=== PATIENT | female | born 1950 | race Caucasian/White ===

== ENCOUNTER 2021-10-14 06:01 | Inpatient (IN) | payer OTHER, MEDICAID ==
[~2021-10-14] VITALS: Ht 152.4 cm; Wt 74.4 kg
[2021-10-14 06:32] LABS: BASOPHILS % 0.8 % (0.0-2.0); EOSINOPHILS % 2.4 % (0.0-5.0); HEMATOCRIT. 40.2 % (36.0-48.0); HEMOGLOBIN. 13.2 g/dL (12.0-16.0); LYMPHOCYTES % 35.6 % (20.0-50.0); MEAN CORPUSCULAR VOLUME 85.1 fL (81.0-99.0); MEAN PLATELET VOLUME 9.5 fl (7.4-10.4); MONOCYTES % 9.6 % (2.0-8.0); NEUTROPHILS % 51.6 % (40.0-76.0); PLATELET 206 x1000/uL (130-400); RED BLOOD CELL COUNT 4.72 mill/uL (4.2-5.4); RED CELL DISTRIBUTION WIDTH 13.8 % (11.6-14.6)
[2021-10-14 06:40] LABS: CHLORIDE 109 mEq/L (98-107)
[2021-10-14 10:05] VITALS: BP 141/41
[2021-10-14] MEDS ORDERED: METO25TA6 MT (10:35)
[2021-10-14] MEDS ORDERED: APIX5TAB MT (10:35)
[2021-10-14 10:51] VITALS: BP 141/41
[2021-10-14] MEDS ORDERED: AMLODIPINE 2.5MG TABLET PO ONE (11:00)
[2021-10-14] MEDS: AMLODIPINE 2.5MG TABLET PO SCH ×2 (11:06→20:42)
[2021-10-14] MEDS: APIXABAN 5 MG TABLET PO SCH ×2 (11:06→18:13)
[2021-10-14 12:30] VITALS: BP 136/51
[2021-10-14 16:20] VITALS: BP 137/51
[2021-10-14] MEDS ORDERED: ACETAMINOPHEN 325MG TABLET PO PRN (16:45)
[2021-10-14] MEDS ORDERED: ONDANSETRON HCL 4MG/2ML INJ IV PRN (16:45)
[2021-10-14 19:32] LABS: CLARITY URINE CLEAR (CLEAR); COLOR URINE YELLOW (YELLOW); KETONES URINE NEGATIVE (NEGATIVE); LEUKOCYTE ESTERASE URINE NEGATIVE (NEGATIVE); NITRITE URINE NEGATIVE (NEGATIVE); OCCULT BLOOD URINE NEGATIVE (NEGATIVE); PH URINE 6.5 (4.5-8.0); PROTEIN URINE NEGATIVE (NEGATIVE); SPECIFIC GRAVITY URINE 1.012 (1.005-1.030); UROBILINOGEN URINE 0.2 E.U./dL (0.2-1.0)
[2021-10-14 20:00] VITALS: BP 129/43
[2021-10-15] VITALS: BP 151/51
[2021-10-15 03:50] VITALS: BP 144/43
[2021-10-15 05:29] LABS: BASOPHILS % 0.5 % (0.0-2.0); EOSINOPHILS % 2.1 % (0.0-5.0); HEMOGLOBIN. 12.6 g/dL (12.0-16.0); LYMPHOCYTES % 31.9 % (20.0-50.0); MEAN CORPUSCULAR HEMOGLOBIN 27.4 pg (28.0-32.0); MEAN CORPUSCULAR VOLUME 84.5 fL (81.0-99.0); MEAN PLATELET VOLUME 10.3 fl (7.4-10.4); MONOCYTES % 11.6 % (2.0-8.0); NEUTROPHILS % 53.9 % (40.0-76.0); PLATELET 210 x1000/uL (130-400); RED BLOOD CELL COUNT 4.61 mill/uL (4.2-5.4); RED CELL DISTRIBUTION WIDTH 13.9 % (11.6-14.6)
[2021-10-15 05:55] LABS: CHLORIDE 109 mEq/L (98-107)
[2021-10-15 08:03] VITALS: BP 144/49
[2021-10-15] MEDS: APIXABAN 5 MG TABLET PO SCH (08:51)
[2021-10-15] MEDS: AMLODIPINE 2.5MG TABLET PO SCH (08:51)
[2021-10-15 12:30] VITALS: BP 137/48
[2021-10-15 12:50] VITALS: BP 137/48
== END 2021-10-15 13:53 | disposition home or self-care (01) | DRG 309 ==
LOC: ER 06:25 → 6WST 08:57 → ENRESERV 09:30
PROVIDERS: ADMIT Internal Medicine; ATTEND Internal Medicine
DX: I48.0 Paroxysmal atrial fibrillation (principal); D68.59 Other primary thrombophilia; E87.8 Other disorders of electrolyte and fluid balance, not elsewhere classified; R07.89 Other chest pain; I08.0 Rheumatic disorders of both mitral and aortic valves; R00.1 Bradycardia, unspecified; R00.0 Tachycardia, unspecified; I10 Essential (primary) hypertension; T44.7X5A Adverse effect of beta-adrenoreceptor antagonists, initial encounter; Z88.6 Allergy status to analgesic agent; Z79.01 Long term (current) use of anticoagulants
CPT/HCPCS: 36415; 71045; 80048; 80053; 81003; 83735; 83880; 84443; 84484; 85025; 93005; 93306; 99285

== ENCOUNTER 2021-11-22 08:14 | Inpatient (IN) | payer OTHER, MEDICAID ==
[~2021-11-22] VITALS: Ht 162.6 cm; Wt 63.3 kg
[~2021-11-22 08:14] MED LIST: APIX5TAB MT
[2021-11-22 09:06] LABS: BASOPHILS % 0.4 % (0.0-2.0); EOSINOPHILS % 1.3 % (0.0-5.0); HEMATOCRIT. 40.2 % (36.0-48.0); HEMOGLOBIN. 13.1 g/dL (12.0-16.0); LYMPHOCYTES % 27.3 % (20.0-50.0); MEAN CORPUSCULAR HEMOGLOBIN 27.7 pg (28.0-32.0); MEAN CORPUSCULAR VOLUME 84.9 fL (81.0-99.0); MEAN PLATELET VOLUME 9.8 fl (7.4-10.4); MONOCYTES % 9.3 % (2.0-8.0); NEUTROPHILS % 61.7 % (40.0-76.0); PLATELET 224 x1000/uL (130-400); RED BLOOD CELL COUNT 4.74 mill/uL (4.2-5.4)
[2021-11-22 09:14] LABS: CHLORIDE 112 mEq/L (98-107)
[2021-11-22] MEDS ORDERED: ONDANSETRON HCL 4MG/2ML INJ IV PRN (12:15)
[2021-11-22] MEDS ORDERED: HYDROCODONE/ACETAMINOPHEN 5/325MG TABLET PO PRN (12:15)
[2021-11-22] MEDS ORDERED: CLONIDINE 0.1MG TABLET PO PRN (12:15)
[2021-11-22] MEDS ORDERED: NITROGLYCERIN 0.4MG TABLET SL SL PRN ×2 (12:15→12:30)
[2021-11-22] MEDS ORDERED: IPRATROPIUM/ALBUTEROL 0.5-3(2.5)MG/3ML NEB NEB PRN (12:15)
[2021-11-22] MEDS ORDERED: MAGNESIUM/ALUMINUM HYDROXIDE/SIMETHICONE 30ML UDC PO PRN (12:15)
[2021-11-22] MEDS ORDERED: GUAIFENESIN 200MG/10ML SUGAR FREE UDC PO PRN (12:15)
[2021-11-22] MEDS ORDERED: ACETAMINOPHEN 325MG TABLET PO PRN ×2 (12:15)
[2021-11-22] MEDS ORDERED: NALOXONE HCL 0.4MG/ML VIAL IV PRN (12:30)
[2021-11-22] MEDS ORDERED: ENOXAPARIN 40MG/0.4ML SYR SUBCUT SCH (13:00)
[2021-11-22 14:00] VITALS: BP 111/55
[2021-11-22 14:19] VITALS: BP 111/55
[2021-11-22 16:00] VITALS: BP 123/68
[2021-11-22] MEDS ORDERED: ATOR40TA70 PO (18:48)
[2021-11-22] MEDS ORDERED: METO25TA6 PO (18:48)
[2021-11-22 20:00] VITALS: BP 118/57
[2021-11-22] MEDS: ATORVASTATIN CALCIUM 40MG TABLET PO SCH (22:21)
[2021-11-22] MEDS: METOPROLOL TARTRATE 25MG TABLET PO SCH (22:22)
[2021-11-23] VITALS (7 sets, daily range): BP systolic 90–133; BP diastolic 46–60
[2021-11-23 08:03] LABS: BASOPHILS % 0.5 % (0.0-2.0); EOSINOPHILS % 1.5 % (0.0-5.0); HEMATOCRIT. 43.5 % (36.0-48.0); HEMOGLOBIN. 14.2 g/dL (12.0-16.0); LYMPHOCYTES % 41.4 % (20.0-50.0); MEAN CORPUSCULAR HEMOGLOBIN 27.9 pg (28.0-32.0); MEAN CORPUSCULAR VOLUME 85.2 fL (81.0-99.0); MEAN PLATELET VOLUME 10.3 fl (7.4-10.4); MONOCYTES % 8.9 % (2.0-8.0); NEUTROPHILS % 47.7 % (40.0-76.0); PLATELET 247 x1000/uL (130-400); RED CELL DISTRIBUTION WIDTH 14.1 % (11.6-14.6)
[2021-11-23 08:18] LABS: CHLORIDE 110 mEq/L (98-107)
[2021-11-23 08:42] LABS: PHOSPHORUS 3.3 mg/dL (2.5-4.9); TOTAL IRON BINDING CAPACITY 342 ug/dL (250-450)
[2021-11-23 08:54] LABS: VITAMIN B12 SERUM 1008 pg/mL (211-911)
[2021-11-23] MEDS: APIXABAN 5 MG TABLET PO SCH ×2 (09:00→20:16)
[2021-11-23] MEDS: METOPROLOL TARTRATE 25MG TABLET PO SCH ×2 (09:00→20:20)
[2021-11-23 09:24] LABS: FOLIC ACID (FOLATE) SERUM > 20.00 ng/mL (>5.38)
[2021-11-23] MEDS ORDERED: IOHEXOL-350 100 ML BOTTLE ONE (11:02)
[2021-11-23 14:34] LABS: FERRITIN 26 ng/mL (10-291)
[2021-11-23] MEDS ORDERED: NITR0.4T49 SL ×2 (14:50→15:05)
[2021-11-23] MEDS ORDERED: METO25TA6 PO (15:05)
[2021-11-23] MEDS: ATORVASTATIN CALCIUM 40MG TABLET PO SCH (20:16)
[2021-11-24] VITALS: BP 132/40
[2021-11-24 04:00] VITALS: BP 148/46
[2021-11-24 07:00] LABS: BASOPHILS % 0.4 % (0.0-2.0); EOSINOPHILS % 1.9 % (0.0-5.0); HEMATOCRIT. 36.6 % (36.0-48.0); HEMOGLOBIN. 12.3 g/dL (12.0-16.0); LYMPHOCYTES % 29.6 % (20.0-50.0); MEAN CORPUSCULAR HEMOGLOBIN 28.3 pg (28.0-32.0); MEAN CORPUSCULAR VOLUME 84.4 fL (81.0-99.0); MEAN PLATELET VOLUME 9.9 fl (7.4-10.4); MONOCYTES % 9.6 % (2.0-8.0); NEUTROPHILS % 58.5 % (40.0-76.0); PLATELET 195 x1000/uL (130-400); RED BLOOD CELL COUNT 4.34 mill/uL (4.2-5.4); RED CELL DISTRIBUTION WIDTH 13.8 % (11.6-14.6)
[2021-11-24 07:20] LABS: CHLORIDE 111 mEq/L (98-107)
[2021-11-24 07:25] LABS: PHOSPHORUS 3.8 mg/dL (2.5-4.9)
[2021-11-24 08:00] VITALS: BP 137/40
[2021-11-24] MEDS ORDERED: REGADENOSON 0.4 MG/5 ML IV ONE ×2 (08:00→11:42)
[2021-11-24] MEDS ORDERED: METOPROLOL TARTRATE 25MG TABLET PO SCH (09:30)
[2021-11-24 12:00] VITALS: BP 156/46
[2021-11-24] MEDS: APIXABAN 5 MG TABLET PO SCH (13:19)
[2021-11-24 16:00] VITALS: BP 157/53
[2021-11-24 16:14] VITALS: BP 157/53
== END 2021-11-24 17:20 | disposition home or self-care (01) | DRG 206 ==
LOC: ER 08:51 → 7EST 10:01 → EDBEDREQ 10:04 → SUPCPDRO 10:16 → ENRESERV 11:43
PROVIDERS: ADMIT Internal Medicine; ATTEND Internal Medicine
DX: M94.0 Chondrocostal junction syndrome [Tietze] (principal); E44.0 Moderate protein-calorie malnutrition; I48.91 Unspecified atrial fibrillation; E78.5 Hyperlipidemia, unspecified; I35.1 Nonrheumatic aortic (valve) insufficiency; Z20.822 Contact with and (suspected) exposure to COVID-19; I10 Essential (primary) hypertension; R51.9 Headache, unspecified; R79.89 Other specified abnormal findings of blood chemistry; Z88.6 Allergy status to analgesic agent; Z79.01 Long term (current) use of anticoagulants; Z79.899 Other long term (current) drug therapy; Z68.23 Body mass index [BMI] 23.0-23.9, adult
CPT/HCPCS: 36415; 71045; 71275; 78452; 80048; 80053; 80061; 82607; 82728; 82746; 83036; 83540; 83550; 83735; 83880; 84100; 84439; 84443; 84484; 85025; 85379; 87426; 93005; 93017; 93306; 93970; 99285; A9500; J1650; J2785; Q9967

== ENCOUNTER 2023-11-21 04:15 | Emergency (ER) | payer OTHER, MEDICAID ==
[~2023-11-21] VITALS: Ht 157.5 cm; Wt 60.0 kg
[~2023-11-21 04:15] MED LIST changes: -APIX5TAB MT; +ATOR40TA70 PO; +DIGO-34 PO; +FURO20TA4 PO; +NITR0.4T49 SL
[2023-11-21 04:18] VITALS: O2SAT 100
[2023-11-21] MEDS: ASPIRIN 325MG EC TABLET PO ONE (04:45)
[2023-11-21 05:52] LABS: BASOPHILS % 0.5 % (0.0-2.0); EOSINOPHILS % 0.6 % (0.0-5.0); HEMATOCRIT. 38.9 % (36.0-48.0); HEMOGLOBIN. 12.8 g/dL (12.0-16.0); LYMPHOCYTES % 11.7 % (20.0-50.0); MEAN CORPUSCULAR HEMOGLOBIN 26.9 pg (28.0-32.0); MEAN CORPUSCULAR HGB CONC 32.9 g/dL (31.0-37.0); MEAN CORPUSCULAR VOLUME 81.8 fL (81.0-99.0); MEAN PLATELET VOLUME 9.4 fl (7.4-10.4); MONOCYTES % 7.4 % (2.0-8.0); NEUTROPHILS % 79.8 % (40.0-76.0); PLATELET 241 x1000/uL (130-400); RED BLOOD CELL COUNT 4.76 mill/uL (4.2-5.4); RED CELL DISTRIBUTION WIDTH 13.8 % (11.6-14.6); WHITE BLOOD COUNT 9.7 x1000/uL (4.5-11.0)
[2023-11-21 06:03] LABS: INR 1.1; PARTIAL THROMBOPLASTIN TIME 22.6 sec (23.4-31.0); PROTHROMBIN TIME 11.9 sec (9.6-11.0)
[2023-11-21] MEDS: MORPHINE SULFATE 4 MG/ML INJ (FOR IV/IM USE) IV ONE (06:14)
[2023-11-21 07:11] LABS: CHLORIDE 107 mEq/L (98-107); POTASSIUM 3.7 mEq/L (3.5-5.1); SODIUM 138 mEq/L (136-145)
[2023-11-21 07:12] LABS: CALCIUM 9.6 mg/dL (8.7-10.4); CARBON DIOXIDE 22 mEq/L (21-32)
[2023-11-21 07:17] LABS: CREATININE 0.6 mg/dL (0.6-1.0); GLUCOSE 128 mg/dL (70-105); UREA NITROGEN BLOOD 12 mg/dL (9-23)
[2023-11-21 07:18] LABS: TROPONIN I HIGH SENSITIVITY 16 ng/L (3.0-34)
[2023-11-21 07:19] LABS: ALANINE AMINOTRANSFERASE 29 IU/L (10-49); ALBUMIN 4.4 g/dL (3.2-4.8); ASPARTATE AMINOTRANSFERASE 44 IU/L (<34); BILIRUBIN DIRECT 0.5 mg/dL (<=3.0); BILIRUBIN TOTAL 1.3 mg/dL (0.1-1.0); DIGOXIN 0.5 ng/mL (0.8-2.0); PROTEIN TOTAL 7.4 g/dL (6.0-8.3)
[2023-11-21] MEDS: DIGOXIN 500MCG/2ML AMP IV SCH (07:30)
[2023-11-21 07:40] LABS: ETHANOL BLOOD < 10 mg/dL (<10)
[2023-11-21 10:00] VITALS: TEMP 98.4
[2023-11-21 11:02] VITALS: BP 111/69; PULSE 98; RESP 16
== END 2023-11-21 14:42 | disposition left against medical advice (07) ==
LOC: ER 04:15 → EDBEDREQSVC 05:33 → EDBEDREQ 05:33 → ER 14:42
DX: R07.89 Other chest pain (principal); I48.91 Unspecified atrial fibrillation; I10 Essential (primary) hypertension; Z88.6 Allergy status to analgesic agent
CPT/HCPCS: 80076; 80048; 80320; 80162; 83880; 83690; 85025; 85610; 85730; 84484; 36415; 71045; 93005; 96374; 99285; J1160; J2270; G0480